=== PATIENT | female | born 1990 | race Caucasian/White ===

== ENCOUNTER → 2017-04-08 10:27 | Outpatient (CLI) | payer BC | END | disposition home or self-care (01) | LOC: D.US 10:27 | DX: Z34.90 Encounter for supervision of normal pregnancy, unspecified, unspecified trimester (principal); N63 Unspecified lump in breast ==

== ENCOUNTER → 2017-06-08 06:11 | Outpatient (CLI) | payer BC | END | disposition home or self-care (01) | LOC: D.LDO 06:11 | DX: O26.93 Pregnancy related conditions, unspecified, third trimester (principal); Z3A.39 39 weeks gestation of pregnancy ==

== ENCOUNTER 2017-06-12 13:47 | Inpatient (IN) | payer BC ==
[2017-06-17 05:42] VITALS: BP 119/73; BMI 30.1
[2017-06-17 06:16] LABS: HEMATOCRIT 28.9 % (36.0-48.0); HEMOGLOBIN 8.6 g/dL (12-16); MCH 21.7 pg (26.0-34.0); MCHC 29.8 g/dL (31.0-37.0); MCV 72.8 fL (80.0-100.0); MEAN PLATELET VOLUME 11.1 fL (7.4-10.4); RBC 3.97 10x6/uL (4.00-5.40); RDW 16.1 % (11.5-14.5); WBC 10.8 10x3/uL (4.8-10.8)
[2017-06-17 06:25] LABS: APPEARANCE CLEAR (CLEAR); BILIRUBIN NEGATIVE (NEGATIVE); COLOR YELLOW (YELLOW); GLUCOSE NEGATIVE (NEGATIVE); KETONE NEGATIVE (NEGATIVE); NITRITE NEGATIVE (NEGATIVE); PROTEIN NEGATIVE (NEGATIVE); UROBILINOGEN NORMAL (NORMAL)
[2017-06-17] MEDS ORDERED: PRENATAL COMPLE1 TAB PO (09:04)
--- NOTE | 2017-06-17 23:30 | NUR ---
PT AMBULATORY TO ROOM 1273 FOR CONTINUED PP CARE. PT G2 NOW P2 FOLLOWING DELIVERY OF VIABLE FEMALE INFANT OVER MIDLINE EPISOTOMY. S/O AT BEDSIDE WITH PT, SUPPORTIVE AND ATTENTIVE TO PT. ORIENTED TO ROOM, CL, BED RAILS, AND BATHROOM. CL AND PHONE WITHIN REACH. BED IN LOW POSITION. UPPER SIDE RAILS RAISED X2. ICE WATER PROVIDED PER REQUEST.
--- NOTE | 2017-06-17 23:43 | NUR ---
PT TEARFUL AT THIS TIME. REPORTS THAT RECTUM IS "HURTING SO BAD." PAIN 05/23, REQUESTS ADDITIONAL TYLENOL #3 SINCE SHE ONLY TOOK 1 TAB FOR THE FIRST DOSE. GIVEN PER REQUEST. LIGHTS TURNED OFF, PT STATES THAT SHE WANTS TO REST, NBN CONTACTED AND PT UPDATED ON STATUS. S/O REMAINS AT BEDSIDE, SUPPORTIVE OF PT. BED IN LOW POSITION WITH UPPER SIDE RAILS RAISED X2. CL AND PHONE WITHIN REACH. WILL CONT TO MONITOR AND ASSIST PRN.
--- NOTE | 2017-06-18 00:30 | NUR ---
PAIN REASSESSMENT COMPLETED. PT REPORTS LITTLE RELIEF OF DISCOMFORT TO RECTUM AND INCREASE IN ABD CRAMPING. REQUESTING ADDITIONAL PAIN MEDS OR DIFFERENT PAIN MEDS AT THIS TIME. STATES THAT RELIEF DOESN'T LAST FROM OTHER PRODUCTS. WILL CONTACT DR. LOWRY.
--- NOTE | 2017-06-18 00:43 | NUR ---
DR. LOWRY NOTIFIED BY Jm ALFARO RN OF PT C/O PAIN AND DISCOMFORT WITH LITTLE RELIEF FROM ORDERED PAIN MEDICATIONS AND PERICARE PRODUCTS. ORDERS REC'D FOR 600 MG PO MOTRIN Q6HP FOR PAIN AND CRAMPING.
--- NOTE | 2017-06-18 01:09 | NUR ---
PT REPORTS THAT PAIN HAS GOTTEN BETTER, RATES 3/10, STILL TO RECTUM. DISCUSSED NEW ORDER FOR IBUPROFEN WITH PT. PT REQUESTS TO TAKE MOTRIN NOW. GIVEN PER REQUEST AND ORDER. PT INSTRUCTED THAT MED IS PRN Q6H, AND SHE HAD TO ASK FOR IT, VERBALIZES UNDERSTANDING. ALSO INSTRUCTED ON POSSIBLE SIDE EFFECTS, VERBALIZED UNDERSTANDING. BED IN LOW POSITION WITH UPPER SIDE RAILS RAISED X2. CL AND PHONE WITHIN REACH. WILL CONT TO MONITOR AND ASSIST PRN.
[2017-06-18 02:31] VITALS: BP 106/55
--- NOTE | 2017-06-18 02:31 | NUR ---
RN TO BEDSIDE FOR ROUNDS. PT IN HIGH FOWLERS POSITION WITH INFANT IN ARMS BONDING. PT STATES THAT SHE FEELS THE NEED TO VOID. UP TO BATHROOM, VOIDED 800 MLS IN HAT. ASSISTED WITH PERICARE, PT CONTINUES TO C/O RECTAL PAIN, BUT VERBALIZES RELEIF WITH USE OF TUX AND EPIFOAM. PT BRUSHES TEETH AND WASHES FACE WHILE UP, STATES THAT SHE WILL TAKE A SHOWER DURING DAY SHIFT, THAT SHE WANTS TO REST AT THIS TIME. S/O REMAINS AT BEDSIDE, SUPPORTIVE AND ATTENTIVE OF PT AND . PT BACK TO BED. ICE PACK APPLIED TO BUTTOCKS AND PERINUM, MILD BILATERAL LAIBAL SWELLING NOTED. VSS. FUNDUS FIRM, U2 WITH SMALL AMT RUBRA LOCHIA, NO CLOTS NOTED.ICE WATER GIVEN. DENIES ADDITIONAL NEEDS AT THIS TIME. IN OPEN CRIB AT BEDSIDE. BED IN LOW POSITION WITH UPPER SIDE RAILS RAISED X2. CL AND PHONE WITHIN REACH. WILL CONT TO MONITOR AND ASSIST PRN.
--- NOTE | 2017-06-18 04:22 | NUR ---
RN TO BEDSIDE FOR ROUNDS. PT SITTING IN HIGH FOWLERS POSITION, GRIMACE NOTED. PAIN 8/10 TO RECTUM AND PERINUM. PT REQUESTED TYLENOL #3, 2 TABS GIVEN PER ORDER. PT STATES THAT PERINUM IS BURNING AND STINGING ALSO. NEW ICE PACK APPLIED TO PERINUM AND RECTUM. ICE WATER GIVEN. PT DENIES ADDITIONAL NEEDS AT THIS TIME. S/O RESTING ON COUCH AT BEDSIDE. BED IN LOW POSITION WITH UPPER SIDE RAILS RAISED X2. CL AND PHONE WITHIN REACH. WILL CONT TO MONITOR AND ASSIST PRN.
--- NOTE | 2017-06-18 05:05 | NUR ---
PAIN REASSESSMENT COMPLETED. PT RESTING WITH EYES CLOSED IN SEMI FOWLERS POSITION. RESPIRATIONS REGULAR AND UNLABORED. NO S/S OF DISTRESS NOTED. S/O RESTING ON COUCH AT BEDSIDE. BED IN LOW POSITION WITH UPPER SIDE RAILS RAISED X2. CL AND PHONE WITHIN REACH. WILL CONT TO MONITOR AND ASSIST PRN.
[2017-06-18 06:38] LABS: HEMATOCRIT 24.3 % (36.0-48.0); MCH 21.7 pg (26.0-34.0); MCV 72.3 fL (80.0-100.0); MEAN PLATELET VOLUME 10.8 fL (7.4-10.4); RBC 3.36 10x6/uL (4.00-5.40); RDW 16.2 % (11.5-14.5)
[2017-06-18 06:41] LABS: HEMOGLOBIN 7.3 g/dL (12-16); WBC 15.8 10x3/uL (4.8-10.8)
--- NOTE | 2017-06-18 07:07 | OP ---
PATIENT NAME: BEN ZAPIEN MEDICAL RECORD: [id number] :88 LOCATION:[id number] ADMISSION DATE:06/17/17 SURGEON: MARE LOWRY MD DATE OF OPERATION: 06/17/2017 DELIVERY NOTE Spontaneous vaginal delivery of female infant, weighing 8 pounds 7 ounces with 9 and 9 Apgars. Second-degree midline episiotomy, repaired using 2-0 and 3-0 chromic sutures. Epidural anesthesia. Spontaneous delivery of intact-appearing placenta. ESTIMATED BLOOD LOSS: 400 cc. COMPLICATIONS OF DELIVERY: None. TRANSINT:[id number] Voice Confirmation ID: [id number] DOCUMENT ID: [id number] MARE LOWRY MD at 0707 CC: [id number] DICTATION DATE: 06/17/172011 NEWBORN HEARING SCREENER: 06/17/17 2235 ADM IN [facility] [address] [place] [address]
--- NOTE | 2017-06-18 07:20 | NUR ---
ASSUME CARE OF THIS PATIENT. DR LOWRY VISITING WITH PATIENT AND DISCUSSING LAB RESULTS WITH RECOMMENDATIONS TO CONTINUE IRON TWICE A DAY. PT VERBALIZED UNDERSTANDING AND AWARE OF FOOD SOURCES OF IRON. SHIFT ASSESSMENT COMPLETED AFTER MD VISIT. SITTING UP IN BED WITH IN ARMS. DENIED PAIN. HAS BEEN USING DERMOPLAST, EPIFOAM, TUCKS AND ICE PACK FOR RELIEF OF HEMORRHOID PAIN. EXTERNAL HEMORRHOID NOTED. NO EDEMA OF LABIA OR PERINEAL AREA NOTED WITH MLE INTACT WITHOUT ERRYTHEM. LOCHIA RUBRA SMALL TO MOD. DESIRES TDAP BEFORE DC HOME TONIGHT. FOB SLEEPING ON COUCH. SIDE RAILS UP X 2 CALL LIGHT IN REACH. DISCUSSED BREASTCARE AND PLANS FOR SITZ BATH NEEDED THIS AM. TO CALL IF ANYTHING IS NEEDED.
[2017-06-18 07:25] VITALS: BP 122/64
[2017-06-18 07:27] LABS: RAPID PLASMA REAGIN Non Reactive (Non Reactive)
--- NOTE | 2017-06-18 07:40 | NUR ---
FINISHED BREAKFAST, REQUESTS TO NURSERY WHILE SHE IS UP IN BATHROOM. DECLINES SHOWER TODAY STATES "I WILL TAKE ONE WHEN I GET HOME".
--- NOTE | 2017-06-18 09:16 | NUR ---
MOTRIN 60O MG GIVEN FOR FOR RELIEF OF INTERMITTENT 5/10 CRAMPING. TDAP GIVEN IM LEFT DELTOID AFTER CONSENT. IN NURSERY. INSTRUCTED TO LET RN KNOW WHEN READY FOR SITZ BATH AND IF MEDICATION IS NEEDED FOR EPISIOTOMY OR HEMORRHOID PAIN. DESIRES TO WAIT ABOUT AN HOUR. VERBALIZED UNDERSTANDING. CALL LIGHT IN REACH.
--- NOTE | 2017-06-18 10:14 | NUR ---
TYLENOL 3 TWO TABS GIVEN PO FOR RELIEF OF RECTAL/PERINEAL PAIN. SIDE RAILS UP X 2, CALL LIGHT IN REACH. INFANT IN ARMS. REMINDED NOT TO FALL ASLEEP WITH INFANT IN ARMS. CRAMPING NOW 3/10 AND ABOVE PAIN 6/10. TO CALL IF ANYTHING ELSE IS NEEDED. VERBALIZED UNDERSTANDING.
--- NOTE | 2017-06-18 11:09 | NUR ---
Sharri Weeks 06/18/17 S: Patient states," just finished feeding; baby is doing good with nursing. I have been feeding for only 10 minutes per side, one of the nurses told me to feed like that. This is my second baby, I only breastfed for 5 weeks, I dried up due to stress." O: Patient sitting up in bed feeding nursing . FOB on sofa. Observed room herself from off the breast, infant appears content with feeding. Asked patient if her nipples are tender or sore, replies no, they are find. Patient states started eating at 10:40 did 10 minutes on the left and came off at 11:11 on the right. Explained feeding cues, infant should feed on demand when showing feeding cues, allow to stay latched to the first breast as long as she prefers, If infant is at the breast for only 5 minutes or so and tries sleeping, stimulate to wake, if removes herself from the breast, try burping, stimulate, and offer the other breast. Supply and demand, what infant takes out her body will make more of. How long stays latch can vary per feeding, normal nursing feedings can vary in length and this is normal. Explained and provided handouts on breastmilk composition, benefits of skin to skin, growth spurs, positions for , waking a sleeping baby, and what to expect the first week. Encouraged to continue to feed baby on demand, please ask for help as needed with . Explained how to verify infant is latched correctly to the breast. Asked if any questions or concerns, all declined. A; Patient appears confident with . P: Continue to promote exclusively . Jose Francisco Calrisle, CLC
--- NOTE | 2017-06-18 11:20 | NUR ---
SITTING UP IN BED TALKING TO LACTACTION SEED SALES MANAGER. DENIES CRAMPING. STATES "THE OTHER PAIN IS ABOUT A 2". DENIES NEEDING IN ANYTHING. INFANT IN ARMS.
--- NOTE | 2017-06-18 12:50 | NUR ---
SITTING UP IN BED RECEIVED FRESH ICE PACK FOR PERINEUM/RECTAL AREA. DISCUSSED RELIEF MEASURES, ENCOURAGED USE OF SITZ BATH AT THIS TIME AND DISCUSSED US OF ANALPRAM CREAM. DESIRES TO WAIT UNTIL HER MOTHER ARRIVES BEFORE INSTRUCTIONS OF BOTH. ALSO DISCUSSED MEASURES TO USE TO AVOID SITTING DIRECTLY ON HEMORRHOID. DECLINES POSITION CHANGE AT THIS TIME. SIDE RAILS UP X 2, CALL LIGHT IN REACH. TO CALL IF ANYTHING IS NEEDED.
--- NOTE | 2017-06-18 14:46 | NUR ---
INSTRUCTED ON USE OF SITZ BATH. COMPLETED SITZ BATH. REQUESTED PAIN MEDICATION FOR 6/10 RECTAL PAIN. APPR 1 CM BY 2 CM OVAL MED EDEMETOUS AREA NOTED FROM INFERIOR RECTUM TO MID PERINEUM. HX OF MLE. PT SAYS SITTING IN WARM WATER HELPED RELIEVE SOME DISCOMFORT. TYLENOL #3 2 TABS GIVEN PO FOR RELIEF. UP TO SHOWER AT THIS TIME. PT MOTHER ASSISTING IN BR. FOB WOULD LIKE TO PICK RX FOR PATIENT AT PHARMACY. PRESCRIPTION GIVEN TO FOB. ALSO ENCOURAGED TO PRINCIPAL LIBRARIAN BLOW-UP BABY FLOAT TOY FOR USE TO SIT ON AT HOME.
--- NOTE | 2017-06-18 16:20 | NUR ---
SITTING UP IN BED. SAYS SHE FEELS BETTER AFTER HER SHOWER. RECTAL PAIN NOW A 2/10. USED HYDROCORTISONE CREAM PER DIRECTIONS TO HEMORRHOID. DC TEACHING COMPLETED TO INCLUDE ROUTINE PP CARE, PP DEPRESSION, S&S INFECTION, /BREAST CARE, MEDICATION ADMINISTRATION, EPISIOTOMY/HEMORRHOID CARE, COMMUNITY RESOURCES, SITZ BATH, CAR SAFETY AND FOLLOW-UP. SPOUSE HAS PRESCRIPTION FOR MOTRIN. APPOINTMENT ALREADY SCHEDULED FOR JULY 20 AT 1020. TO CALL CLINIC TO RESCHEDULE IF NEEDED. VERBALIZED UNDERSTANDING OF INSTRUCTIONS. VERBAL AND WRITTEN INFORMATION PROVIDED. PLAN DC HOME WHEN DC'D THIS PM. SIDE RAILS UP X 2, CALL LIGHT IN REACH.
--- NOTE | 2017-06-18 17:12 | NUR ---
SITTING UP IN BED. INFANT IN ROOM. PROVIDED ADDITIONAL DC INSTRUCTIONS TO INCLUDE ANEMIA. DISCUSSED FOOD SOURCES OR IRON AND REINFORCED DR OLWRY'S EARLY TEACHING REGARDING IRON THERAPY. VERBALIZED UNDERSTANDING.
[2017-06-18] MEDS ORDERED: IBUPROFEN600 MG PO (17:41)
[2017-06-18 19:09] VITALS: BP 113/63
--- NOTE | 2017-06-18 19:09 | NUR ---
PT. AWAKE AND ORIENTED SITTING UP IN BED WITH HOB AT 45 DEGREES HOLDING INFANT. SKIN WARM AND DRY. FUNDUS FIRM AND LOCHIA RUBRA MOD. PT. RATES PAIN A 6 OF 10 ON PAIN SCALE FOR HEMORRHOIDAL DISCOMFORT. PT. STATES SHE IS PLANNING FOR DISCHARGE. FOB IN ROOM WITH PT.
--- NOTE | 2017-06-18 19:43 | NUR ---
Tylenol #3 tabs 2 given to pt. per her request for 2 tabs. Reports pain of 6 of 10 due to hemorrhoid. returned to [facility] for discharge assessment and completion of labs etc.
--- NOTE | 2017-06-18 20:19 | NUR ---
DRESSING FOR DISCHARGE. WRITTEN DISCHARGE INSTRUCTIONS GIVEN TO PT. PT. STATES THAT INFORMATION WAS ALREADY REVIEWED WITH HER PER DAYSHIFT NURSE.
--- NOTE | 2017-06-18 20:30 | NUR ---
DISCHARGED OFF UNIT VIA WHEELCHAIR TO FRONT ENTRANCE PER THIS NURSE TO AWAITING CAR. FOB DRIVING PT. HOME. CAR SEAT IN PLACE FOR INFANT.
== END 2017-06-18 20:30 | disposition home or self-care (01) | DRG 775 ==
LOC: D.LD
PROVIDERS: ADMIT Obstetrics & Gynecology
PROC: 10E0XZZ Delivery of Products of Conception, External Approach (ICD-10-PCS; principal; 2017-06-17)
PROC: 10907ZC Drainage of Amniotic Fluid, Therapeutic from Products of Conception, Via Natural or Artificial Opening (ICD-10-PCS; 2017-06-17)
PROC: 3E0P3VZ Introduction of Hormone into Female Reproductive, Percutaneous Approach (ICD-10-PCS; 2017-06-17)
PROC: 0W8NXZZ Division of Female Perineum, External Approach (ICD-10-PCS; 2017-06-17)
DX: O48.0 Post-term pregnancy (principal); Z37.0 Single live birth; Z3A.40 40 weeks gestation of pregnancy; O99.03 Anemia complicating the puerperium

== ENCOUNTER 2017-06-12 20:44 | Outpatient (CLI) | payer BC ==
[2017-06-12 21:09] LABS: APPEARANCE CLEAR (CLEAR); BILIRUBIN NEGATIVE (NEGATIVE); COLOR YELLOW (YELLOW); GLUCOSE NEGATIVE (NEGATIVE); KETONE NEGATIVE (NEGATIVE); NITRITE NEGATIVE (NEGATIVE); PROTEIN NEGATIVE (NEGATIVE); SPECIFIC GRAVITY 1.005 (1.005-1.020); UROBILINOGEN NORMAL (NORMAL)
== END 2017-06-12 22:55 | disposition home or self-care (01) ==
LOC: D.LD 20:44 → D.LDO 20:44
PROVIDERS: Obstetrics & Gynecology
DX: O26.893 Other specified pregnancy related conditions, third trimester (principal); Z3A.40 40 weeks gestation of pregnancy